=== PATIENT | male | born 1990 | race Caucasian/White ===

== ENCOUNTER → 2017-07-02 | Emergency (ER) | payer OTHER ==
[~2017-07-02] VITALS: Ht 177.8 cm; Wt 97.1 kg
[~2017-07-02] MED LIST: CIPRO 500MG TA500 MG PO; FLOMAX 0.4MG C0.4 MG PO; OMEPRAZOLE20 MG PO
--- OUTSIDE RECORDS SUMMARY | 2017-07-02 12:23 | External Medical Summary Rpt | CCD ---
Author Author , MARTINA MACK Address Unknown Phone [email or web address] Purpose Continuity of Care Document - 03-19-2017 through 2016 Problems Code Diagnosis DOS Provider Status N23 UNSPECIFIED RENAL COLIC
--- OUTSIDE RECORDS SUMMARY | 2017-07-02 12:23 | External Medical Summary Rpt | CCD ---
Author Author [employer] Organization [employer] Address Unknown Phone Unavailable Purpose Continuity of Care Document - through 2016
--- OUTSIDE RECORDS SUMMARY | 2017-07-02 12:23 | External Medical Summary Rpt | CCD ---
Author Author , MARTINA MACK Address Unknown Phone [email or web address] Purpose Continuity of Care Document - 03-19-2017 through 2016 Problems Code Diagnosis DOS Provider Status N23 UNSPECIFIED RENAL COLIC
--- OUTSIDE RECORDS SUMMARY | 2017-07-02 12:23 | External Medical Summary Rpt | CCD ---
Author Author , MARTINA MACK Address Unknown Phone [email or web address] Immunization Name Date Rout CVX Reac Dose Comm Prov Is Faci e tion ent ider Refu lity Give sed n Hep 08-1 8 999 Hist H198 No H198 B, 5-20 oric A A ped/ 02 al adol Info rmat ion - Sour ce Unsp ecif ied MMR 08-1 3 999 Hist H167 No H167 2-19 oric 96 al Info rmat ion - Sour ce Unsp ecif ied Johnny 08-1 2 999 Hist H167 No H167 o-OP 2-19 oric V 96 al Info rmat ion - Sour ce Unsp ecif ied
--- OUTSIDE RECORDS SUMMARY | 2017-07-02 12:23 | External Medical Summary Rpt | CCD ---
Author Author , MARTINA MACK Address Unknown Phone [email or web address] Immunization Name Date Rout CVX Reac Dose [...]
--- OUTSIDE RECORDS SUMMARY | 2017-07-02 12:24 | External Medical Summary Rpt ---
Author Author [employer], [employer]INA [employer] Organization [employer] Address Unknown Phone Unavailable Results Amylase [Enzymatic activity/volume] in Serum or Plasma Observa Value Referen Units Interpr Notes Date tion ce etation Range Amylase 25 - 115 U/L Normal No Mar 19 [Enzymati informati 2017 7:05 c on in PM activity/ source volume] data in Serum or Plasma Comprehensive metabolic 2000 panel in Serum or Plasma Observa Value Referen Units Interpr Notes Date tion ce etation Range Albumin/G 1.1 - 1.8 No Low No Mar 19 lobulin informati informati 2017 7:05 [Mass on in on in PM ratio] in source source Serum or data data Plasma Albumin 3.4 - 5.0 gm/dL Normal No Mar 19 [Mass/vol informati 2016 7:05 ume] in on in PM Serum or source Plasma data Alkaline 46 - 116 U/L Normal No Mar 19 phosphata informati 2017 7:05 se on in PM [Enzymati source c data activity/ volume] in Serum or Plasma Bilirubin 0.2 - 1.0 mg/dL Normal No Mar 19 .total informati 2016 7:05 [Mass/vol on in PM ume] in source Serum or data Plasma Urea 7 - 18 mg/dL Normal No Mar 19 nitrogen informati 2016 7:05 [Mass/vol on in PM ume] in source Serum or data Plasma Calcium 8.5 - mg/dL Normal No Mar 19 [Mass/vol 10.1 informati 2016 7:05 ume] in on in PM Serum or source Plasma data Chloride 98 - 107 mmoL/L Normal No Mar 19 [Moles/vo informati 2016 7:05 lume] in on in PM Serum or source Plasma data Carbon 21.0 - mmoL/L Normal No Mar 19 dioxide, 32.0 informati 2017 7:05 total on in PM [Moles/vo source lume] in data Serum or Plasma Creatinin 0.70 - mg/dL Normal No Mar 19 e 1.30 informati 2017 7:05 [Mass/vol on in PM ume] in source Serum or data Plasma Creatinin 50 - 200 ML/MIN Normal No Mar 19 e renal informati 2016 7:05 clearance on in PM source predicted data by Cockcroft -Gault formula Estimated >60 ML/MIN No REFERENCE Mar 19 informati RANGE: 2017 7:05 glomerula on in >60 PM r source ML/MIN/1. filtratio data 73 SQUARE n rate METERSIf (GF this patient is -A merican, then multiply theresult by 1.210. Globulin 1.3 - 3.2 gm/dL High No Mar 19 [Mass/vol informati 2016 7:05 ume] in on in PM Serum source data Glucose 74 - 106 mg/dL Normal No Mar 19 [Mass/vol informati 2016 7:05 ume] in on in PM Serum or source Plasma data Potassium 3.5 - 5.1 mmoL/L Normal No Mar 192016 7:05 [Moles/vo on in PM lume] in source Serum or data Plasma Sodium 136 - 145 mmoL/L Normal No Mar 19 [Moles/vo ati 2016 7:05 lume] in on in PM Serum or source Plasma data Aspartate 15 - 37 U/L Normal No Mar 19 informati 2016 7:05 aminotran on in PM sferase source [Enzymati data c activity/ volume] in Serum or Plasma Alanine 12 - 78 U/L Normal No Mar 19 aminotran 2016 7:05 sferase on in PM [Enzymati source c data activity/ volume] in Serum or Plasma Protein 6.4 - 8.2 gm/dL Normal No Mar 19 [Mass/vol informati 2016 7:05 ume] in on in PM Serum or source Plasma data Lipase [Enzymatic activity/volume] in Serum or Plasma Observa Value Referen Units Interpr Notes Date tion ce etation Range Lipase 73 - 393 U/L Normal No Mar 19 [Enzymati informati 2016 7:05 c on in PM activity/ source volume] data in Serum or Plasma CBC W Auto Differential panel in Blood Observa Value Referen Units Interpr Notes Date tion ce etation Range Basophils 0 - 0.2 K/MM3 Normal No Mar 19 inform2016 7:05 [#/volume on in PM ] in source Blood by data Automated count Basophils 0.1 - 2.0 % Normal No Aug 14 /100 informati 2017 7:05 leukocyte on in PM s in source Blood by data Automated count Eosinophi 0.0 - 0.4 K/mm3 Normal No Mar 14 ls informati 2016 7:05 [#/volume on in PM ] in source Blood by data Automated count Eosinophi 0.1 - % Normal No Mar 14 ls/100 12.0 informati 2016 7:05 leukocyte on in PM s in source Blood by data Automated count Granulocy 1.3 - 8.0 K/mm3 High No Mar 14 oscar informati 2016 7:05 [#/volume on in PM ] in source Blood by data Automated count Granulocy 37.0 - % Normal No Mar 19 oscar/100 80.0 informati 2016 7:05 leukocyte on in PM s in source Blood by data Automated count Hematocri 42.0 - % Normal No Mar 19 t [Volume 52.0 informati 2016 7:05 on in PM Fraction] source of Blood data Hemoglobi 14.1 - g/dL Normal No Mar 19 n 18.0 informati 2016 7:05 [Mass/vol on in PM ume] in source Blood data Lymphocyt 0.7 - 4.5 K/mm3 Normal No Mar 19 es informati 2016 7:05 [#/volume on in PM ] in source Unspecifi data ed specimen by Automated count Lymphocyt 10 - 50 % Normal No Mar 19 es informati 2016 7:05 [#/volume on in PM ] in source Unspecifi data ed specimen by Automated count Erythrocy 27 - 31.2 pg High No Mar 19 te mean informati 2016 7:05 corpuscul on in PM ar source hemoglobi data n [Entitic mass] Erythrocy 31.8 - g/dl Normal No Mar 19 te mean 35.4 informati 2016 7:05 corpuscul on in PM ar source hemoglobi data n concentra tion [Mass/vol ume] by Automated count Erythrocy 82.2 - fl Normal No Mar 19 te mean 97.8 informati 2016 7:05 corpuscul on in PM ar volume source [Entitic data volume] by Automated count Monocytes 0.1 - 1.0 K/mm3 Normal No Mar 14 informati 2016 7:05 [#/volume on in PM ] in source Blood by data Automated count Monocytes 1.7 - 9.3 % Normal No Aug 14 /100 informati 2017 7:05 leukocyte on in PM s in source Blood by data Automated count Platelet 7.4 - fl Normal Mar 19 mean 10.4 informati 2017 7:05 volume on in PM [Entitic source volume] data in Blood by Automated count Platelets 142 - 424 K/mm3 Normal No Mar 14 informati 2017 7:05 [#/volume on in PM ] in source Blood data Erythrocy 4.6 - 6.2 M/mm3 Normal No Mar 19 oscar informati 2016 7:05 [#/volume on in PM ] in source Amniotic data fluid Erythrocy 11.5 - % Normal Mar 19 te 17.5 informati 2017 7:05 distribut on in PM ion width source [Entitic data volume] by Automated count Leukocyte 4.8 - K/MM3 High Mar 19 s 10.8 informati 2016 7:05 [#/volume on in PM ] in source Blood data
--- NOTE | 2017-07-02 12:26 | Emergency Room Report ---
History of Present Illness Time Seen by 1206 Presenting Problem in Triage Pt arrived:Walked Presenting Problem:PT ADVISES THIS MORNING AROUND 0515 HE REMEMBERS SITTING DOWN TO WATCH TV, THE NEXT THING HE REMEMBERS HE WAS IN HIS NEIGHBORS KITCHEN WITH A BLOODY FACE. PT HAS LARGE ABRASIONS TO THE RIGHT SIDE OF HIS FACE AND DOESN'T REMEMBER HOW THEY GOT THERE. HE CAN NOT ACCOUNT FOR APPROX. 15 MINS OF TIME THIS AM. 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 N Clinical Suspician of Infection? N Mental Status: 1 - Regular (Normal Baseline) Sepsis Risk:Low Sepsis Risk Have you (or family members/close friends) recently traveled outside the [place]? N If Yes, where/when: Have you had exposure to infectious disease within the past month? N TB? Other? Specify: Source patient, RN notes reviewed Exam Limitations no limitations Comment Pt reports he has total amnesia for a period of about 15 minutes this morning starting around 5AM. He got up to help his off to work and the next thing he remembers is waking up in the back yard of a neighbor about 1/8th mile from his home. He had some severe abrasions on the right side of his face and eventually ended up in the neighbors' kitchen and being yelled at by the neighbor's to get out. He says he had an episode similar to this in 2010 and was supposed to have been scheduled for an MRI of his brain but it was never done. In 2010, he was ? mosre post-ictal and had incontinence of urine. Today he had no incontinence of urine or stool. He is not taking any meds and denies using anything offf the street Cardiac Chest Pain Chest pain indicative of cardiac No ALLERGIES Coded Allergies: No Known Allergies (03/19/17) Home Medications Reported Medications No Known Home Medications History Medical History General CAD? No Angina: No NM: No Hypertension? No Hyperlipidemia? No CHF? No DVT? No PE? No COPD? No Asthma? No Anemia? No GERD? No Gastric ulcers? No GI Bleed? No Hernia? No Thyroid Problems? No Hypothyroidism? No CVA? No Seizures? No Diabetes? No Renal Insuffiency? No End Stage Renal Disease? No UTI? No Stones? No BPH? No GB Disease: No Nephritic Syndrome? No Asplenia? No Hepatitis? No Sickle Cell Disease? No Arthritis? No Migraines? No Cataracts? No Glaucoma? No MRSA? No HIV? No TB? No Anxiety? No Depression? No Cancer? No More? No Immunization Hx DT/Tetanus 1-4 Years Ago Surgical Hx Previous Surgery?Y LITHOTRIPSY Social History Smoking Hx Smoker: Current Every Day Smoker Tobacco: Yes Type Cigarettes Packs/day 1 1/2 - 2 Packs Alcohol Alcohol: No Review of Systems All Other Systems Reviewed and Negative Constitutional see HPI ENT see HPI. Skin see HPI Psychiatric/Neurological see HPI Physical Exam Vital Signs Vital Signs Date Time Temp Pulse Resp B/P Pulse O2 O2 Flow FiO2 Ox Delivery Rate 07/02 1349 98.3 88 16 150/89 99 07/02 1200 98.4 107 16 158/99 99 General Appearance normal appearance, WD/WN, no apparent distress Eye Exam - bilateral eye normal exam Ear, Nose, Throat large abrasions on the right side of his face Respiratory Status No: respiratory distress. 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 No Results/Orders Laboratory Tests 07/02/17 1220: Creatine Kinase 322 H, ESR 11 07/02/17 1220: Sodium 141, Potassium 3.6, Chloride 106, Carbon Dioxide 28, BUN 10, Creatinine 0.9, Estimated Creat Clear 169, Estimated GFR (MDRD) 101, Glucose 107 H, Calcium 9.0, Total Bilirubin 0.4, AST 21, ALT 27, Alkaline Phosphatase 53, Total Protein 7.5, Albumin 4.0, Globulin 3.5 H, Albumin/Globulin Ratio 1.1, WBC 17.8 H, RBC 4.73, Hgb 15.4, Hct 45.5, MCV 96.2, RDW 12.6, Plt Count 289, MPV 8.2, Gran % 81.3 H, Gran # 14.4 H, Total Counted 100, Lymphocytes % 11.2, Monocytes % 6.4, Eosinophils % 0.8, Basophils % 0.3, Neutrophils 85 H, Band Neutrophils 2 , Lymphocytes (Manual) 9 L, Lymphocytes # 2.0, Monocytes (Manual) 4, Monocytes # 1.1 H, Eosinophils # 0.1, Basophils # 0.1, Platelet Estimate NORMAL, PUBS MCHC 33.9, MCH 32.6 H Current Medication Orders Sig/Kim Start time Last Medication Dose Route Stop Time Status Admin Sodium Chloride 1,000 ML .STK-MED ONE 07/02 1257 DC IV Sodium Chloride 1,000 ML .Q1H1M 07/02 1245 DC 07/02 IV 07/02 1345 1259 Sodium Chloride 10 ML PRN PRN 07/02 1245 AC IV 07/03 1243 Sodium Chloride 10 ML PRN PRN 07/02 1215 AC IV 07/03 1206 Orders Procedure Date/time Status DIET-NOTHING BY MOUTH 07/02 D Active CPK 07/[address] HEAD REQ 07/02 1220 Complete RAPID PLASMA REAGIN 07/02 1220 Active SED RATE 07/02 1220 Complete DIFFERENTIAL-WBC 07/02 1220 Complete C-REACTIVE PROTEIN 07/[address] HEAD REQ 07/02 1208 Complete IV SALINE LOCK 07/02 1208 Active URINALYSIS/COMPLETE 07/02 1208 Active DRUG ABUSE SCREEN (TRIAGE) 07/02 1208 Active CBC WITH AUTO DIFF 07/02 1208 Complete CHEM 12 PROFILE 07/02 1208 Complete XRAY/CT/US XRAY/CT/US CT head CT interpretation by discussed w/radiologist Time results known: 1402 CT Results normal/NAD Departure Departure Time of Disposition 1413 Disposition DC/XFER from ER to [facility] Clinical Impression Primary Impression: Seizure disorder Condition STABLE Patient Instructions DI for Seizure Disorder -- Adult, Seizure Disorder -- Adult Additional Instructions Pt going by POV to ED to see Dr. Reyes of the Neurology service for further workup. I have told them we could send him by ambulance and keep his IV in to deliver medicines in case he has another episode on his way there but he and his wish to go by private vehicle Discharge Counseling Counseled pt/family regarding diagnosis, test results, home care, follow up needs Prescriptions Current Visit Scripts No Known Home Medications ED Critical Care Critical Care No If Critical Care minutes are documented, the time involved in the performance of seperately reportable procedures was not counted toward critical care time documented. I directly delivered medical care to this critically ill and/or injured patient. Timely evaluation and treatment was necessary to address the significant organ system(s) dysfunction present in this patient. at [id number]
[2017-07-02 12:31] LABS: HEMOGLOBIN 15.4 g/dL (14.1-18.0); LYMPH % 11.2 % (10-50)
[2017-07-02 12:55] LABS: NEUTROPHILS 85 % (42-76)
--- NOTE | 2017-07-02 13:24 | RADIOLOGY REPORT PS360 ---
CT HEAD-W/WO CONTRAST INDICATION: Headache/abrasion/injury, abrasion to the right side of the head, disorientation for a few moments LOST A PERIOD OF TIME THIS MORNING ORDERING PHYSICIAN: Ernesto Drummond MD PATIENT AGE: 27 years COMPARISON: None TECHNIQUE: Axial images are obtained without and with contrast. FINDINGS: No midline shift, mass effect, intracranial hemorrhage, hydrocephalus, or enhancing lesion is evident. No large aneurysms are evident. Small aneurysms may not be visualized with this technique. No acute calvarial fracture or sinus air-fluid level. There is mild mucosal thickening of the right frontal sinus anteriorly. Mild mucosal thickening of the sphenoid sinus centrally. No mastoid effusion IMPRESSION: No acute intracranial findings. Negative CT head without and with contrast.
[2017-07-02 14:34] VITALS: BP 150/89
== END ==
LOC: ER 11:53
PROVIDERS: General Practice
DX: R56.9 Unspecified convulsions (principal); S00.81XA Abrasion of other part of head, initial encounter; X58.XXXA Exposure to other specified factors, initial encounter; Y92.89 Other specified places as the place of occurrence of the external cause; F17.210 Nicotine dependence, cigarettes, uncomplicated